=== PATIENT | male | born 1955 | race Caucasian/White ===

== ENCOUNTER 2018-08-18 22:05 | Emergency (ER) | payer OTHER ==
[~2018-08-18] VITALS: Ht 162.6 cm; Wt 68.2 kg
[2018-08-18 22:12] VITALS: Ht 162.6 cm; Wt 68.2 kg
[2018-08-18] MEDS ORDERED: morphine 4 MG/ML VIAL IV STA (22:29)
[2018-08-18] MEDS ORDERED: ONDANSETRON 4 MG INJ IV STA (22:29)
[2018-08-18] MEDS ORDERED: DIPHTH/TET/ACEL PERTUSS (ADULT) 0.5 ML VIAL IM* ONE (22:30)
[2018-08-18] MEDS ORDERED: HYDROmorphONE 0.5 MG/0.5 ML SYG IV STA (23:10)
[2018-08-18] MEDS ORDERED: TRAM50TA2 PO (23:46)
[2018-08-18] MEDS ORDERED: IBUP-1542 PO (23:46)
--- NOTE | 2018-08-19 00:58 | ERD ---
ER Documentation Chief Complaint Chief Complaint UMBERTO [id number] from home,forehead lac & LLE pain & swelling r/t fall HPI This is a 8-year-old male brought in by rescue from home after he suffered a mechanical fall on her forehead laceration left lower extremity pain. He is unable to weight-bear weight. No fevers no chills no nausea no vomiting. No loss of consciousness. No other current issues ROS All systems reviewed and are negative except as per history of present illness. Medications Home Meds Active Scripts Tramadol HCl (Tramadol HCl) 50 Mg Tablet, 50 MG PO Q4 PRN for PAIN, #20 TAB Prov:CHELSEA MATHUR S. 08/18/18 Ibuprofen* (Motrin*) 600 Mg Tab, 600 MG PO Q6, #30 TAB Prov:CHELSEA MATHUR S. 08/18/18 Allergies Allergies: Coded Allergies: No Known Allergy (Unverified , 08/18/18) PMhx/Soc History of Surgery: Yes (BACK) Anesthesia Reaction: No Hx Neurological Disorder: No Hx Respiratory Disorders: No Hx Cardiac Disorders: Yes (HTN) Hx Psychiatric Problems: No Hx Miscellaneous Medical Probl: No Hx Alcohol Use: No Hx Substance Use: No Hx Tobacco Use: No Smoking Status: Never smoker Physical Exam Vitals Vital Signs Date Temp Pulse Resp B/P (MAP) Pulse Ox O2 O2 Flow FiO2 Time Delivery Rate 08/18/18 97.7 98 18 154/84 96 22:12 (107) Physical Exam Const: No acute distress Head: Atraumatic Eyes: Normal Conjunctiva ENT: Normal External Ears, Nose and Mouth. Neck: Full range of motion. No meningismus. Resp: Clear to auscultation bilaterally Cardio: Regular rate and rhythm, no murmurs Abd: Soft, non tender, non distended. Normal bowel sounds Skin: No petechiae or rashes Back: No midline or flank tenderness Ext: No cyanosis, or edema Neur: Awake and alert Psych: Normal Mood and Affect Results 24 hrs Current Medications Medications Dose Sig/Mariah Start Time Status Last (Trade) Ordered Route PRN Stop Time Admin Dose Reason Admin Diphtheria/ 0.5 ml ONCE ONCE 08/18/18 DC 08/18/18 Tetanus/Acell IM* 22:30 22:38 Pertussis 08/18/18 22:31 (Adacel) Morphine 4 mg ONCE STAT 08/18/18 DC 08/18/18 Sulfate IV 22:29 22:36 (morphine) 08/18/18 22:30 Ondansetron 4 mg ONCE STAT 08/18/18 DC 08/18/18 HCl (Zofran IV 22:29 22:36 Inj) 08/18/18 22:30 1 mg ONCE STAT 08/18/18 DC 08/19/18 Hydromorphone IV 23:10 00:34 HCl 08/18/18 23:11 (Dilaudid) Procedures/MDM X-ray Tib/Fib 2V Interpreted by me: Bones: Tibia and fibula fracture as described radiologist. Please see full dictation for report Joints: [No dislocation] Foreign body: [None] Splint Assessment: Neurovascularly intact post splint placement with good fit. Laceration Repair by me: Anesthesia: None Location: Forehead Tendon/Joint/Nerves: No injury Foreign body: None detected after copious irrigation and exploration Technique: Tissue adhesive Complexity: No subcutaneous sutures/mucosal repair/edge excision Post Closure Length: 4 cm Patient's bleeding was easily controlled in the department and there is no indic ation of anemia. No evidence of compartment syndrome, neurologic injury, vascular injury, open joint, tendon laceration, or foreign body. Patient is appropriate for outpatient follow up. 48 hour wound check. Scar minimization instructions given. Medical decision makin-year-old male with a tibia and fibular fracture and forehead laceration. CT is negative and he is nonfocal neurologically. Consulted with Dr. Koch via telephone, and he agreed that the patient be treated as an outpatient post splinting. Copy of x-ray was given to the patient. Referral given to Dr. Koch for outpatient orthopedic follow-up within 48 hours. Return for any numbness tingling increased pain. Discharged home with tramadol and Motrin. Departure Diagnosis: Primary Impression: Lower leg fracture Encounter type: initial encounter Fracture type: closed Laterality: left Qualified Codes: S82.92XA - Unspecified fracture of left lower leg, initial encounter for closed fracture Additional Impression: Forehead laceration Encounter type: initial encounter Qualified Codes: S01.81XA - Laceration without foreign body of other part of head, initial encounter Condition: Stable Patient Instructions: Fracture, Lower Extremity Referrals: RODO KOCH MD, DANIEL S. Aug 19, 2018 00:58
[2018-08-19 01:11] VITALS: BP 144/83; PULSE 87; RESP 19
== END 2018-08-19 01:24 | disposition home or self-care (01) ==
LOC: E/R 22:05
DX: S01.81XA Laceration without foreign body of other part of head, initial encounter (principal); S82.302A Unspecified fracture of lower end of left tibia, initial encounter for closed fracture; S82.442A Displaced spiral fracture of shaft of left fibula, initial encounter for closed fracture; I10 Essential (primary) hypertension; W18.39XA Other fall on same level, initial encounter; Y92.009 Unspecified place in unspecified non-institutional (private) residence as the place of occurrence of the external cause; Z23 Encounter for immunization
CPT/HCPCS: 12013; 29505; 70450; 73590; 90471; 90715; 96374; 96375; J1170; J2270; J2405; Z7502